=== PATIENT | female | born 1975 | race Caucasian/White ===

== ENCOUNTER → 2020-09-25 | Outpatient (CLI) | payer BC ==
[2020-09-25 09:31] LABS: Basophils % (A) 0 %; Eosinophils # (A) 0.2 k/uL (0-0.7); Eosinophils % (A) 2 %; HCT 41.8 % (34.0-46.0); HGB 13.6 gm/dL (11.4-16.0); Lymphocytes # (A) 2.3 k/uL (1.0-4.8); Lymphocytes % (A) 24 %; MCH 28.3 pg (25.0-35.0); MCHC 32.6 g/dL (31.0-37.0); MCV 86.8 fL (80.0-100.0); Mean Platelet Volume 6.9; Monocytes # (A) 0.7 k/uL (0-1.0); Monocytes % (A) 7 %; Neutrophils # (A) 6.2 k/uL (1.3-7.7); Neutrophils % (A) 64 %; Platelet Count 357 k/uL (150-450); RBC 4.82 m/uL (3.80-5.40); RDW 13.2 % (11.5-15.5); WBC 9.6 k/uL (3.8-10.6)
[2020-09-25 09:45] LABS: Appearance,Urine Cloudy (Clear); Bacteria,Urine Rare /hpf; Bilirubin,Urine Negative (Negative); Blood,Urine Negative (Negative); Calcium Oxalate Crystals,Urine Occasional /hpf; Color,Urine Yellow; Glucose,Urine (UA) Trace (Negative); Hyaline Casts,Urine 14 /lpf (0-2); Ketones,Urine Negative (Negative); Leukocyte Esterase,Urine Small (Negative); Mucus,Urine Occasional /hpf; Nitrite,Urine Negative (Negative); Protein,Urine Negative (Negative); RBC,Urine 3 /hpf (0-5); Specific Gravity,Urine 1.027 (1.001-1.035); Squamous Epithelial Cell,Urine 9 /hpf (0-4); Urobilinogen,Urine <2.0 mg/dL (<2.0); WBC,Urine 2 /hpf (0-5); White Blood Cell Casts,Urine 1 /lpf (0)
[2020-09-25 09:51] LABS: African American GFR (CKD) >90 (>60 ml/min/1.73 sqM); Anion Gap 6 mmol/L; Blood Urea Nitrogen 19 mg/dL (7-17); Calcium 9.6 mg/dL (8.4-10.2); Carbon Dioxide 24 mmol/L (22-30); Chloride 105 mmol/L (98-107); Glucose 196 mg/dL (74-99); Magnesium 1.6 mg/dL (1.6-2.3); Non-African American GFR(CKD) 85 (>60 ml/min/1.73 sqM); Potassium 5.4 mmol/L (3.5-5.1); Sodium 135 mmol/L (137-145)
== END | disposition home or self-care (01) ==
LOC: LABPAT 08:09
PROVIDERS: ATTEND Urology
DX: Z01.818 Encounter for other preprocedural examination (principal); N94.6 Dysmenorrhea, unspecified; N92.0 Excessive and frequent menstruation with regular cycle; N39.3 Stress incontinence (female) (male); R35.0 Frequency of micturition
CPT/HCPCS: 36415; 80048; 81001; 83735; 85025; 87086

== ENCOUNTER 2020-10-02 06:47 | Observation (INO) | payer BC ==
[2020-09-27 14:27] VITALS: BMI 43.2
[2020-10-02] MEDS ORDERED: ONDANSETRON 4 MG/2 ML VIAL ONE (07:22)
[2020-10-02] MEDS ORDERED: ONDANSETRON 4 MG/2 ML VIAL IVP ONE (07:34)
[2020-10-02] MEDS ORDERED: DEXAMETHASONE SOD PHOSPHATE 4 MG/ML 1 ML VIAL IVP ONE (07:34)
[2020-10-02] MEDS ORDERED: LACTATED RINGERS 1,000 ML IV ONE ×2 (07:34→11:18)
[2020-10-02] MEDS ORDERED: ACETAMINOPHEN TAB 500 MG TAB ONE (07:48)
[2020-10-02] MEDS ORDERED: ACETAMINOPHEN TAB 500 MG TAB PO ONE (07:50)
[2020-10-02] MEDS ORDERED: GABAPENTIN 300 MG CAP PO ONE (07:50)
[2020-10-02] MEDS ORDERED: GENTAMICIN 80 MG in SODIUM CHLORIDE 0.9% 500 ML 500 ML IRRIGATION ONE ×4 (09:08)
[2020-10-02] MEDS ORDERED: VASOPRESSIN 20 UNIT/ML 1 ML VIAL SQ ONE ×3 (09:08→11:43)
[2020-10-02] MEDS ORDERED: BACITRACIN ZINC 500 UNIT/GM OINT 28.4 GM TUBE TOPICAL ONE ×2 (09:10→09:26)
[2020-10-02] MEDS ORDERED: KETOROLAC 15 MG/ML 1 ML VIAL ONE (09:24)
[2020-10-02] MEDS ORDERED: HYDROmorphone (PF) 1 MG/ML ONE (09:24)
[2020-10-02] MEDS ORDERED: PROPOFOL 10 MG/ML 20 ML VIAL IV ONE (09:24)
[2020-10-02] MEDS ORDERED: MIDAZOLAM 2 MG/2 ML VIAL ONE (09:24)
[2020-10-02] MEDS ORDERED: SUCCINYLCHOLINE CHLORIDE 100 MG/5 ML SYR IV ONE (09:24)
[2020-10-02] MEDS ORDERED: LIDOCAINE 1% INJ 10MG/ML (20 ML MDV) ONE (09:24)
[2020-10-02] MEDS ORDERED: fentaNYL (PF) 50 MCG/ML 2 ML AMP ONE (09:24)
--- NOTE | 2020-10-02 09:53 | P.HPIHPCON ---
History of Present Illness H&P Date: 10/02/20 Chief Complaint: stress urinary incontenince 45 yo female with hx of POLO, She underwent Urodynamics which confirmed this finding, I discussed with her the option of sling placement. Discussed risks of bleeding, infection, mesh erosion through the urethra, bladder and through the vagina. Discussed potential of persistent POLO even with sling. Discussed risk of urinay retention and chronic thigh pain post operatively. She understood all risks and agreed to proceed. Consent for Procedure: I have explained the operation/procedure to the patient, including the risks, benefits, side effects, alternative therapies (including not receiving the pro posed treatment or service), the likelihood of the patient achieving his/her goals, and potential recuperation problems for the procedure/sedation/analgesia, as well as any blood products, if indicated. I also explained to the patient the risks, benefits and side effects of the alternatives, as well as the risks related to not receiving the proposed procedure, care, treatment, or services. Past Medical History Past Medical History: Musculoskeletal Disorder Additional Past Medical History / Comment(s): Hx kidney stones. Paramyotonia Congentia. History of Any Multi-Drug Resistant Organisms: None Reported Past Surgical History: Cholecystectomy, Uterine Ablation Additional Past Surgical History / Comment(s): Kidney stone surgery, muscle/nerv e biopsy. Past Anesthesia/Blood Transfusion Reactions: No Reported Reaction Past Psychological History: Anxiety Smoking Status: Current some day smoker Past Alcohol Use History: Occasional Additional Past Alcohol Use History / Comment(s): Smokes socially occasionally. Past Drug Use History: None Reported - Past Family History Mother Family Medical History: Cancer Father Family Medical History: Cancer Medications and Allergies Home Medications Medication Instructions Recorded Confirmed Type Cholecalciferol [Vitamin D3 (25 1,000 unit PO DAILY 09/27/20 09/27/20 History Mcg = 1000 Iu)] DULoxetine HCL [Cymbalta] 30 mg PO BID 09/27/20 09/27/20 History HYDROcodone/APAP 5-325MG [[place] 1 tab PO Q6HR PRN 09/27/20 09/27/20 History 5-325] Mexiletine [Mexitil] 150 mg PO Q8HR 09/27/20 09/27/20 History Vitamin B Complex 1 each PO DAILY 09/27/20 09/27/20 History Vitamin B-12(Unknown Dose) 1 tab PO TID 09/27/20 09/27/20 History Vitamin C (Unknown Dose) 1 tab PO DAILY 09/27/20 09/27/20 History Allergies Allergy/AdvReac Type Severity Reaction Status Date / Time No Known Allergies Allergy Verified 10/02/20 08:49 Surgical - Exam Vital Signs Temp Pulse Resp BP Pulse Ox 97.4 F L 72 18 158/87 99 10/02/20 07:20 10/02/20 07:20 10/02/20 07:20 10/02/20 07:20 10/02/20 07:20 - General well developed, well nourished, no distress, no pain - Eyes PERRL, normal ocular movement - ENT normal nares, normal mucosa - Respiratory normal expansion, normal respiratory effort - Psychiatric oriented to time, oriented to person, oriented to place Results - Labs 10/02/20 07:31 Diabetes panel 10/02/20 Range/Units 07:31 Potassium 4.7 (3.5-5.1) mmol/L Pituitary panel 10/02/20 Range/Units 07:31 Potassium 4.7 (3.5-5.1) mmol/L Adrenal panel 10/02/20 Range/Units 07:31 Potassium 4.7 (3.5-5.1) mmol/L Assessment and Plan Assessment: 45 yo female with hx of POLO -OR for transobturator sling
[2020-10-02] MEDS ORDERED: ZOLPIDEM 5 MG TAB PO PRN (11:10)
[2020-10-02] MEDS ORDERED: METOCLOPRAMIDE 5 MG/ML 2 ML VIAL IVP PRN (11:10)
[2020-10-02] MEDS ORDERED: IBUPROFEN 600 MG TAB PO PRN (11:10)
[2020-10-02] MEDS ORDERED: KETOROLAC 15 MG/ML 1 ML VIAL IVP PRN (11:10)
[2020-10-02] MEDS ORDERED: ONDANSETRON 4 MG/2 ML VIAL IVP PRN (11:10)
[2020-10-02] MEDS ORDERED: diphenhydrAMINE 50 MG/ML 1 ML VIAL IVP PRN (11:10)
--- NOTE | 2020-10-02 11:10 | P.OP ---
Date of Procedure: 10/02/20 Preoperative Diagnosis: Dysmenorrhea, menorrhagia Postoperative Diagnosis: Same, normal-appearing ovaries bilaterally Procedure(s) Performed: Vaginal hysterectomy Anesthesia: SEBASTIAN Surgeon: Krista Vazquez Estimated Blood Loss (ml): 125 IV fluids (ml): 400 Urine output (ml): 200 Pathology: other (Cervix and uterus) Condition: stable Disposition: PACU Description of Procedure: Patient is brought to the operating suite where a general anesthetic is administered without difficulty. She's placed in the dorsal lithotomy position. The cervix, vagina, perineal bodies are all prepped and draped in usual sterile fashion. The appropriate timeout is performed to assure proper patient and procedural identification. Bladder is drained for approximately 200 mL of clear yellow urine. Large speculum was placed into the vagina. Anterior lip of the cervix is grasped with a double-tooth tenaculum. The cervix is injected circumferentially with a dilute Pitressin solution. A [place] blade scalpel is used to incise the mucosa circumferentially with a V positioning at 6:00. Peritoneum is entered at 6:00 and suture tagged with 2-0 Vicryl suture, and held with a hemostat. At all times the vaginal mucosa is swept well from the opera tive field to avoid bladder and/or ureteral injury. The large billed speculum was placed into the vagina. The uterosacral cardinal ligament complex these are identified, clamped cut and suture ligated, held with a hemostat laterally. 2 pedicles are taken above the uterosacral ligaments. Uterine vasculature is now identified, clamped cut and suture ligated. 0 Vicryl sutures used for the entire remaining hysterectomy portion of the procedure. Again, 2 additional pedicles are taken superior to the vessels bilaterally. The uterus is "walked out" posteriorly. Anterior peritoneum is entered at 12:00. Evy clamps are used across the final pedicles and the cervix and uterus are removed and sent to pathology. Uterus appears very large, likely containing adenomyosis. The pedicles are securely tied with 0 Vicryl, flashed, and retied for excellent hemostasis. Sponge stick is used to visualize the ovaries which appear normal bilaterally. They are left in situ per the patient's wishes. A small portion of the right fallopian tube is bleeding at the fimbriated end, this removed and hemostasis is very good. The speculum is then changed to the shallow billed speculum. The peritoneum is brought around in a pursestring fashion with the previously placed 2-0 Vicryl. The uterosacral cardinal ligaments are now brought across to incorporate the opposite ligament as well as vaginal mucosa. 2 additional [id number] sutures are placed below this, and one above with 0 Vicryl suture to completely close the vaginal cuff. Hemostasis is very good. Dr. Vitaliy torres now is seated to perform the sling portion of this procedure. Estimated blood loss for my procedure 125 mL, fluid replacement 400 mL's. Patient at the end of my procedure has a blood pressure 122/71, 99% O2 saturation, pulse of 74.
--- NOTE | 2020-10-02 12:15 | P.OP ---
Date of Procedure: 10/02/20 Preoperative Diagnosis: Stress urinary incontinence Postoperative Diagnosis: Same Procedure(s) Performed: Cystoscopy, transobturator sling Implants: Obtryx sling Anesthesia: JOANNA Surgeon: Demetrius Rowan Estimated Blood Loss (ml): 10 Pathology: none sent Condition: stable Disposition: PACU Indications for Procedure: 45 yo female with hx of POLO, She underwent Urodynamics which confirmed this finding, I discussed with her the option of sling placement. Discussed risks of bleeding, infection, mesh erosion through the urethra, bladder and through the vagina. Discussed potential of persistent POLO even with sling. Discussed risk of urinay retention and chronic thigh pain post operatively. She understood all risks and agreed to proceed. Description of Procedure: After Dr. Vazquez was completed the vaginal hysterectomy, I proceeded with a sling placement. 0.5% Marcaine with epinephrine was injected submucosally within the anterior vaginal wall, over the urethra. The scalpel was then used to make an anterior midline vaginal incision over the urethra. Metzenbaum scissors were used to dissect laterally within the submucosal plane, to the inferior pubic ramus. The scalpel was used to make bilateral groin incisions at the level of the clitoris. Subcutaneous tissues were spread with a hemostat. Each of the helical needles were passed through the respective groin incision, and turned such that the needle tip wrapped around the pubis. The needle tips were guided digitally into the vaginal incision. The Obtryx graft, which had been previously soaked in antibiotic solution, was secured to the needle tips in the standard fashion. The needles were then withdrawn, and the position of the graft was adjusted such that it overlie the mid urethra, as desired. With a hemostat placed between the graft and the urethra to prevent tension of the graft over the urethra, the plastic sheath was removed from the ends of the graft. The ends of the graft were cut beneath the skin incisions, and these incisions were closed using 4-0 Vicryl suture in a subcuticular fashion. Hemostasis within the vaginal incision was adequate, and the vaginal incision was closed using 2-0 Vicryl suture in a running fashion. Cystoscopy was performed. The 30 lens was used to introduce the 17-Setswana Storz cystoscopic sheath through the urethra and into the bladder under direct vision. The urethra and bladder were unremarkable. There was no evidence of perforation. Both ureteral orifices were of normal anatomic location and configuration, and clear urine effluxed from both. No tumors or foreign bodies were seen. The cystoscope was removed, and the Flores catheter was replaced into the bladder. Vaginal packing was placed. All sponge and needle counts were correct. The patient tolerated the procedure well was taken to the recovery room in stable condition.
[2020-10-02] MEDS ORDERED: HYDROmorphone PCA 10 MG/50 ML BAG IV PRN (15:43)
[2020-10-02] MEDS ORDERED: NALOXONE 0.4 MG/ML 1 ML VIAL IV PRN (15:43)
--- NOTE | 2020-10-03 08:03 | P.DS ---
Providers Date of admission: 10/02/20 23:51 Expected date of discharge: 10/03/20 Attending physician: Krista Vazquez Primary care physician: Tio Wong [facility] Course: This is a 45-year-old female who presented with a history of increasingly severe dysmenorrhea and menorrhagia along with genuine stress urinary incontinence. After thorough consultation patient elected to proceed with vaginal hysterectomy, with concomitant sling procedure by urology. Please see admitting history and physical by both myself and Dr. Chowdhury. Her procedures went well. The vagina was packed with one-inch iodophor gauze and a Flores catheter placed to direct drainage. CLAIM ATTORNEY was given for postoperative pain relief with good results. Patient slept well through the night last night. This morning the vaginal packing and Flores catheter had been removed. Her vital signs are stable and she has remained afebrile. Vagina is clean and dry with only minimal vaginal drainage. Bladder training has commenced. Diet has been advanced. IV has been discontinued. Patient will be allowed to enjoy a regular breakfast tray and full shower. Pending successful bladder training she will be discharged home later today. She will follow-up with me in the office in 2 weeks. I have reminded her no intercourse, tampons or douching. She will use [id number] Advil or Aleve, or Motrin as needed for pain. She will call with any fevers shakes or chills, foul smelling or bloody vaginal drainage, with any difficulties with defecation or urination, or with any pain not alleviated by [id number] meds. No heavy lifting, no driving for 2 weeks. Assessment: Doing well postoperative day #1 Patient Condition at Discharge: Good Plan - Discharge Summary Discharge Rx Participant: No New Discharge Prescriptions: No Action HYDROcodone/APAP 5-325MG [[place] 5-325] 1 tab PO Q6HR PRN PRN Reason: Pain Cholecalciferol [Vitamin D3 (25 Mcg = 1000 Iu)] 1,000 unit PO DAILY Mexiletine [Mexitil] 150 mg PO Q8HR DULoxetine HCL [Cymbalta] 30 mg PO BID Vitamin B-12(Unknown Dose) 1 tab PO TID Vitamin B Complex 1 each PO DAILY Vitamin C (Unknown Dose) 1 tab PO DAILY Discharge Medication List Cholecalciferol [Vitamin D3 (25 Mcg = 1000 Iu)] 1,000 unit PO DAILY 09/27/20 [History] DULoxetine HCL [Cymbalta] 30 mg PO BID 09/27/20 [History] HYDROcodone/APAP 5-325MG [[place] 5-325] 1 tab PO Q6HR PRN 09/27/20 [History] Mexiletine [Mexitil] 150 mg PO Q8HR 09/27/20 [History] Vitamin B Complex 1 each PO DAILY 09/27/20 [History] Vitamin B-12(Unknown Dose) 1 tab PO TID 09/27/20 [History] Vitamin C (Unknown Dose) 1 tab PO DAILY 09/27/20 [History] Follow up Appointment(s)/Referral(s): Krista Vazquez MD [STAFF PHYSICIAN] - 2 Weeks Discharge Disposition: HOME SELF-CARE
[2020-10-03 08:24] VITALS: RESP 20
[2020-10-03 12:09] VITALS: BP 139/88; PULSE 67; TEMP 97.9
== END 2020-10-03 14:55 | disposition home or self-care (01) ==
LOC: OR 06:47 → 4FBP 12:09 → OR 23:51
PROVIDERS: ADMIT Obstetrics & Gynecology; ATTEND Obstetrics & Gynecology
DX: N94.6 Dysmenorrhea, unspecified (principal); N92.0 Excessive and frequent menstruation with regular cycle; N39.3 Stress incontinence (female) (male); Z72.0 Tobacco use; Z87.442 Personal history of urinary calculi; G71.19 Other specified myotonic disorders; Z90.49 Acquired absence of other specified parts of digestive tract; Z98.890 Other specified postprocedural states; Z82.49 Family history of ischemic heart disease and other diseases of the circulatory system; Z83.3 Family history of diabetes mellitus; Z80.42 Family history of malignant neoplasm of prostate; Z80.41 Family history of malignant neoplasm of ovary; Z79.899 Other long term (current) drug therapy; Z79.891 Long term (current) use of opiate analgesic
CPT/HCPCS: 58260; 57288; 81025; 84132; 88307; G0378; J2250; J1580; J1100; J0690; J2405; J2001; J3010; J1170 ×2; J1885; J0330; J2704; 86850; 86900; 86901